=== PATIENT | female | born 1965 | race Caucasian/White ===

== ENCOUNTER 2016-12-20 08:39 | Day surgery (SDC) | payer BC ==
--- NOTE | ~2016-12-20 | EGD ---
EGD REPORT [facility] [address] [address] NAME: JEANMARIE JUAREZ : 63 [place] [facility] [place] [id number] AGE: 51 ADM/REG DATE : 12/20/16 MR#: [id number] REPORT SERV DATE: 12/20/16 DICTATED BY: DATE: REPORT STATUS : Draft TRANSCRIBED BY: [employer] DATE: 12/20/16 [facility] Patient Name: Jeanmarie Juarez Date of : 1965 Attending MD: KORINA MERCEDES MD Procedure Date No Time: 12/20/2016 Procedure: Colonoscopy Indications: Screening for colorectal malignant neoplasm Referring MD: QUYNH KENDRICK Medicines: Monitored Anesthesia Care Complications: No immediate complications. Procedure: Pre-Anesthesia Assessment: - ASA Grade Assessment: III - A patient with severe systemic disease. After I obtained informed consent, the scope was passed under direct vision. Throughout the procedure, the patient's blood pressure, pulse, and oxygen saturations were monitored continuously. The PCF [id number] was introduced through the anus and advanced to the cecum, identified by appendiceal orifice and ileocecal valve. The colonoscopy was performed without difficulty. The patient tolerated the procedure well. The quality of the bowel preparation was excellent. Findings: The perianal and digital rectal examinations were normal. Two sessile polyps were found at the splenic flexure. The polyps were diminutive in size. These polyps were removed with a cold biopsy forceps. Resection and retrieval were complete. A sessile polyp was found at the splenic flexure. The polyp was small in size. The polyp was removed with a cold snare. Resection and retrieval were complete. Two flat polyps were found in the recto-sigmoid colon. The polyps were diminutive in size. These polyps were removed with a cold biopsy forceps. Resection and retrieval were complete. No other significant abnormalities were identified in a careful examination of the remainder of the colon. There is no endoscopic evidence of diverticula, inflammation, mass, ulcerations or angioectasia in the entire colon. Internal hemorrhoids were found during retroflexion and were Grade I (internal hemorrhoids that do not prolapse). No additional abnormalities were found on retroflexion. Impression: - Two diminutive polyps at the splenic flexure. Resected and retrieved. EGD REPORT [place] [id number] [facility] [place]. [address] NAME: JEANMARIE JUAREZ : [birth year] STATUS : REG [facility]#: [id number] AGE: 51 ADM/REG DATE : 12/20/16 MR#: [id number] REPORT SERV DATE: 12/20/16 DICTATED BY: DATE: REPORT STATUS : Draft TRANSCRIBED BY: [employer] DATE: 12/20/16 - One small polyp at the splenic flexure. Resected and retrieved. - Two diminutive polyps at the recto-sigmoid colon. Resected and retrieved. - Internal hemorrhoids. Recommendation: - Patient has a contact number available for emergencies. The signs and symptoms of potential delayed complications were discussed with the patient. Return to normal activities tomorrow. Written discharge instructions were provided to the patient. - High fiber diet. - Discharge patient to home. - Continue present medications. - Await pathology results. - Repeat colonoscopy in 5-10 years for surveillance based on pathology results. - If the pathology report reveals adenomatous tissue, then repeat the colonoscopy for surveillance in 5 years. - If the pathology report reveals no adenomatous tissue, then repeat the colonoscopy for screening purposes in 10 years. Procedure Code(s): --- Professional --- 74930, Colonoscopy, flexible, proximal to splenic flexure; with removal of tumor(s), polyp(s), or other lesion(s) by snare technique 37862, 59, Colonoscopy, flexible, proximal to splenic flexure; with biopsy, single or multiple Diagnosis Code(s): --- Professional --- D12.7, Benign neoplasm of rectosigmoid junction D12.3, Benign neoplasm of transverse colon K64.0, First degree hemorrhoids Z12.11, Encounter for screening for malignant neoplasm of colon CPT copyright 2013 [employer]. All rights reserved. The codes documented in this report are preliminary and upon maintenance and engineering manager review may be revised to meet current compliance requirements. KORINA MERCEDES MD 12/20/2016 10:26 AM This report has been signed electronically. EGD REPORT [facility] [address] [address] NAME: JEANMARIE JUAREZ : 63 [place] [facility] [place] [id number] AGE: 51 ADM/REG DATE : 12/20/16 MR#: [id number] REPORT SERV DATE: 12/20/16 DICTATED BY: DATE: REPORT STATUS : Draft TRANSCRIBED BY: [employer] DATE: 12/20/16 Number of Addenda: 0 Note Initiated On: 12/20/2016 10:03 AM Scope Withdrawal Time 0 hours 10 minutes 10 seconds [address] [address]
[~2016-12-20 08:39] MED LIST: FOLIC ACID400 MC1 PO; MULTIPLE VIT PO; PHENYTEK300 MG; PRAVAC PO; ZOL50 PO
== END 2016-12-20 23:59 | disposition home or self-care (01) ==
LOC: DMU 08:39
PROVIDERS: Internal Medicine Gastroenterology
PROC: 0DBN8ZZ Excision of Sigmoid Colon, Via Natural or Artificial Opening Endoscopic (ICD-10-PCS; principal; 2016-12-20 10:30)
PROC: 0DBL8ZZ Excision of Transverse Colon, Via Natural or Artificial Opening Endoscopic (ICD-10-PCS; 2016-12-20 10:30)
DX: Z12.11 Encounter for screening for malignant neoplasm of colon (principal); D12.3 Benign neoplasm of transverse colon; K64.0 First degree hemorrhoids; K63.5 Polyp of colon; R56.9 Unspecified convulsions; F32.9 Major depressive disorder, single episode, unspecified; Z86.73 Personal history of transient ischemic attack (TIA), and cerebral infarction without residual deficits; Z88.0 Allergy status to penicillin; Z88.5 Allergy status to narcotic agent; Z90.49 Acquired absence of other specified parts of digestive tract
CPT/HCPCS: 88305